=== PATIENT | female | born 1995 | race African-American/Black ===

== ENCOUNTER 2018-05-08 06:22 | Emergency (ER) | payer MEDICAID, OTHER ==
[2018-05-08 07:06] LABS: #Basophils 0.1 thou/uL (0.0-0.2); #Eosinphils 0.2 thou/uL (0.0-0.7); #Lymphocytes 2.5 thou/uL (1.20-3.40); #Monocytes 0.5 thou/uL (0.11-0.59); #Neutrophils 3.7 thou/uL (1.40-6.50); %Basophils 0.9 % (0.0-1.0); %Eosinophils 2.5 % (0.0-10.0); %Lymphocytes 36.4 % (21.0-51.0); %Monocytes 6.6 % (0.0-10.0); %Neutrophils 53.7 % (42.0-75.0); Mean Corpuscular HGB CONC 31.1 g/dL (32.0-36.0); Mean Corpuscular Hemoglobin 26.1 pg (27.0-31.0); Mean Corpuscular Volume 83.9 fL (78.0-98.0); Mean Platelet Volume 7.5 fL (7.4-10.4); Platelet Count 280 thou/uL (130-400); RBC Distribution Width 12.5 % (11.5-14.5); Red Blood Cell (RBC) Count 4.61 mill/uL (4.20-5.40); White Blood Cell (WBC) Count 6.9 thou/uL (4.8-10.8)
[2018-05-08 07:12] LABS: BHCG - Serum Negative (NEGATIVE); Pregs Control Background? CLEAR/WHITE (CLR/WHITE); Pregs Control Bar Appear? YES (CONTROL BAR)
[2018-05-08 07:25] LABS: ALT (SGPT) 16 U/L (8-55); AST (SGOT) 14 U/L (5-34); Albumin 3.6 g/dL (3.5-5.0); Alkaline Phosphatase 74 U/L (40-150); Anion Gap 10 mmol/L (10-20); BUN (Urea Nitrogen) 7 mg/dL (7.0-18.7); Bilirubin, Total 0.2 mg/dL (0.2-1.2); Calc. Creatinine Clearance 0 mL/min (70-130); Calcium 8.5 mg/dL (7.8-10.44); Carbon Dioxide 21 mmol/L (22-29); Chloride 111 mmol/L (98-107); Estimated GFR-MDRD Greater than 90; Globulin 3.1 g/dL (2.4-3.5); Glucose 98 mg/dL (70-105); Protein, Total 6.7 g/dL (6.0-8.3); Sodium 138 mmol/L (136-145)
[2018-05-08 07:28] LABS: CKMB 0.6 ng/mL (0-6.6); Troponin I Less than 0.010 ng/mL (< 0.028)
--- NOTE | 2018-05-08 08:32 | RAD ---
PA AND LATERAL CHEST: Date: 05/08/18 INDICATION: Chest pain upon exhalation since Tuesday; patient denies cough and congestion. COMPARISON: None. FINDINGS: The lungs are clear. Cardiomediastinal silhouette is normal. No acute osseous abnormality is evident. IMPRESSION: No acute cardiopulmonary abnormality. POS: [facility]
[2018-05-08] MEDS ORDERED: Acetaminophen 500 MG TAB ONE (08:58)
[2018-05-08] MEDS ORDERED: Ketorolac Tromethamine 30 MG/ML VIAL ONE (08:58)
--- NOTE | 2018-05-08 09:00 | CT ---
CTA OF THE THORAX UTILIZING IV CONTRAST AND PE PROTOCOL AND 3D REFORMATTED IMAGING: INDICATION: A 22-year-old female with chest pain that has been constant since Tuesday. FINDINGS: No definite central or segmental pulmonary embolus is evident. There is mild soft tissue density within the anterior mediastinum likely related to residual thymus. No enlarged lymph nodes are evident. No confluent airspace opacity is present. No pleural effusion is demonstrated. No acute abnormality is seen within the upper abdomen. No acute osseous abnormality is demonstrated. IMPRESSION: 1. No central or segmental pulmonary embolus demonstrated. 2. No acute pulmonary abnormality demonstrated. POS: [facility]
[2018-05-08] MEDS ORDERED: ISOVUE-370 76%-LOCM 1 ML ONE (09:35)
== END 2018-05-08 09:40 | disposition home or self-care (01) ==
LOC: ERS 06:22
DX: R07.89 Other chest pain (principal); F41.9 Anxiety disorder, unspecified; F32.9 Major depressive disorder, single episode, unspecified
CPT/HCPCS: 71046; 71275; 80053; 82553; 84484; 84703; 85025; 85379; 93005; 96361; 96374; J1885

== ENCOUNTER 2022-12-06 10:42 | Emergency (ER) | payer SELFPAY | END 2022-12-06 13:30 | disposition home or self-care (01) | LOC: ERS 10:42 | DX: R05.9 Cough, unspecified (principal) | CPT/HCPCS: 99282 ==

== ENCOUNTER 2023-03-06 15:44 | Emergency (ER) | payer SELFPAY | END 2023-03-06 16:23 | disposition home or self-care (01) | LOC: ERS 15:44 | DX: R19.7 Diarrhea, unspecified (principal); F17.290 Nicotine dependence, other tobacco product, uncomplicated | CPT/HCPCS: 99283 ==

== ENCOUNTER 2024-06-19 10:56 | Emergency (ER) | payer SELFPAY ==
[2024-06-19] MEDS ORDERED: diphenhydrAMINE 25 MG CAP ONE (12:21)
[2024-06-19] MEDS ORDERED: methylPREDNISolone Sod Succ/PF 125 MG/2 ML VIAL ONE (12:21)
[2024-06-19] MEDS ORDERED: Famotidine 20 MG TAB ONE (12:21)
[2024-06-19] MEDS ORDERED: Acetaminophen 500 MG TAB ONE (13:35)
== END 2024-06-19 14:51 | disposition home or self-care (01) ==
LOC: ERS 10:56
DX: R22.0 Localized swelling, mass and lump, head (principal); F17.290 Nicotine dependence, other tobacco product, uncomplicated
CPT/HCPCS: 96372; 99283; J2919